=== PATIENT | female | born 1945 | race Caucasian/White ===

== ENCOUNTER 2018-10-06 16:30 | Emergency (ER) | payer MEDICARE, OTHER ==
[~2018-10-06] VITALS: Ht 162.6 cm; Wt 98.9 kg
[~2018-10-06 16:30] MED LIST: ALBU2.5V5 NEB; ASPI-630 PO; DOCU50CA9 PO; OLME5TAB4 PO; SERT25TA PO
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
[2018-10-06] MEDS ORDERED: cloNIDine HCL 0.1 MG TABLET PO ONE (17:00)
[2018-10-06 17:01] LABS: BASO # 0.1 x10^3/uL (0.0-0.2); BASO % 1 % (0-3); EOS # 0.1 x10^3/uL (0.0-0.7); EOS % 2 % (0-3); HEMATOCRIT 40.3 % (36.0-47.0); HEMOGLOBIN 13.8 g/dL (12.0-15.5); LYMPH # 1.7 x10^3/uL (1.0-4.8); LYMPH % 28 % (24-48); MEAN CORPUSCULAR HEMOGLOBIN 30 pg (25-35); MEAN CORPUSCULAR HGB CONC 34 g/dL (31-37); MEAN CORPUSCULAR VOLUME 88 fL (79-100); MONO # 0.5 x10^3/uL (0.0-1.1); MONO % 8 % (0-9); NEUT # 3.8 x10^3uL (1.8-7.7); NEUT % 61 % (31-73); PLATELET COUNT 175 x10^3/uL (140-400); RED BLOOD COUNT 4.58 x10^6/uL (3.50-5.40); RED CELL DISTRIBUTION WIDTH 12.9 % (11.5-14.5); WHITE BLOOD COUNT 6.3 x10^3/uL (4.0-11.0)
--- NOTE | 2018-10-06 17:21 | RAD ---
EXAM: Head CT without contrast. HISTORY: Hypertension. Dizziness. TECHNIQUE: Computed tomographic images of the head were obtained without contrast. *One or more of the following individualized dose reduction techniques were utilized for this examination: 1. Automated exposure control. 2. Adjustment of the mA and/or kV according to patient size. 3. Use of iterative reconstruction technique. COMPARISON: None. FINDINGS: There is no acute or subacute extra-axial or intraparenchymal hemorrhage. There is no mass effect or midline shift. There is no hydrocephalus. There are areas of decreased attenuation within the cerebral white matter, nonspecific and likely related to chronic small vessel disease. There is cerebral volume loss. The visualized portions of the orbits, paranasal sinuses and mastoid air cells are unremarkable. No suspicious calvarial lesion is seen. IMPRESSION: 1. No acute intracranial finding. Note is made that MRI is more sensitive for acute infarction. 2. Decreased attenuation scattered within the cerebral white matter, likely due to chronic small vessel disease. 3. Cerebral volume loss. Electronically signed by: Sania Elizabeth MD (10/06/2018 5:19 PM) [facility]
[2018-10-06 17:24] LABS: CALCIUM 9.8 mg/dL (8.5-10.1); CREATININE 1.4 mg/dL (0.6-1.0); GFR 36.7; POTASSIUM 3.8 mmol/L (3.5-5.1)
[2018-10-06 17:25] LABS: FREE T4 1.05 ng/dL (0.76-1.46); THYROID STIM HORMONE (TSH) 3.233 uIU/mL (0.358-3.74)
[2018-10-06 17:26] LABS: ALBUMIN 4.2 g/dL (3.4-5.0); ALBUMIN/GLOBULIN RATIO 1.6 (1.0-1.7); MAGNESIUM 1.9 mg/dL (1.8-2.4); TOTAL BILIRUBIN 2.2 mg/dL (0.2-1.0); TOTAL PROTEIN 6.9 g/dL (6.4-8.2)
[2018-10-06] MEDS ORDERED: hydrALAZINE 20 MG/ML VIAL. IVP ONE (18:00)
[2018-10-06 18:51] VITALS: BP 156/79
--- NOTE | 2018-10-07 06:53 | EKG ---
[facility] [address] [place] [address] Test Date: 2018-10-06 Test Time: 16:38:43 Pat Name: SANDRA THOMAS Department: Room: Gender: F Home Aide: : 1945 Requested By: YAMILET MERRITT Order Number: [id number] Reading MD: Measurements Intervals [place] Rate: 70 P: 41 CA: 144 QRS: 22 QRSD: 82 T: 41 QT: 388 QTc: 421 Interpretive Statements SINUS RHYTHM LEFT ATRIAL ABNORMALITY NON SPECIFIC T ABNORMALITY NON SPECIFIC ST DEPRESSION ABNORMAL ECG No previous ECG available for comparison
== END 2018-10-06 19:02 | disposition home or self-care (01) ==
LOC: ER 16:30
DX: I10 Essential (primary) hypertension (principal); R41.0 Disorientation, unspecified; J45.909 Unspecified asthma, uncomplicated; F32.9 Major depressive disorder, single episode, unspecified; Z88.5 Allergy status to narcotic agent
CPT/HCPCS: 36415; 70450; 80053; 83735; 84439; 84443; 84484; 85025; 93005; 96374; 96375; 99285; J0360; J2060

== ENCOUNTER 2021-04-27 20:48 | Emergency (ER) | payer MEDICARE, OTHER ==
[~2021-04-27] VITALS: Ht 162.6 cm; Wt 104.5 kg
--- NOTE | 2021-04-27 21:02 | PHYS DOC ---
Past Medical History Past Medical History: Asthma, Depression, Hypertension Past Surgical History: Appendectomy, Hysterectomy, Tonsillectomy Smoking Status: Never Smoker Alcohol Use: None Drug Use: None General Adult EDM: Chief Complaint: MECHANICAL FALL HPI: HPI: Patient is a 76 year old female brought in by EMS from home for evaluation of scalp laceration and head injury. She reportedly tripped and fell down a few stairs, hit the back of her head and sustained a laceration. No reported loss of consciousness. The patient has dementia, no acute reported alteration in mental status, no acute new confusion, per the patient's family. The patient denies headache or dizziness. She denies chest pain, dyspnea, palpitations, nausea or vomiting. She denies numbness tingling or feeling weak. She is not taking blood thinners reportedly. She tested positive for Covid just today, as well as multiple other family members with him she lives tested positive for COVID-19 infection. She was reportedly not vaccinated, per EMS and family's report. The patient was attended to quickly after the fall, and it was reportedly witnessed, no reported loss of consciousness. Review of Systems: Review of Systems: Review of systems is as per HPI, the patient's review of systems is somewhat limited by her chronic infusion and dementia. Heart Score: C/O Chest Pain: No Risk Factors: Risk Factors: DM, Current or recent (<one month) smoker, HTN, HLP, family history of CAD, obesity. Risk Scores: Score 0 - 3: 2.5% MACE over next 6 weeks - Discharge Home Score 4 - 6: 20.3% MACE over next 6 weeks - Admit for Clinical Observation Score 7 - 10: 72.7% MACE over next 6 weeks - Early Invasive Strategies Allergies: Allergies: Allergies Coded Allergies Type Severity Reaction Last Updated Verified morphine Adverse Reaction Intermediate Nausea and Vomiting 12/14/15 No Physical Exam: PE: Constitutional: Well developed, well nourished, no acute distress, non-toxic appearance. [] HENT: She has a small area of soft tissue swelling and hematoma of her mid posterior scalp, with subcutaneous laceration, no brisk or active bleeding. Mild soft tissue tenderness. No palpable step-offs. No other areas of trauma or injury noted on her scalp or face. Nares are patent without rhinorrhea or epistaxis. Oropharynx is patent and clear. No acute dental trauma noted. TMs are clear bilaterally, no hemotympanum otorrhea. Mucous membranes are moist. Eyes: PERRL, EOMI, conjunctiva normal, no discharge. [] Neck: Trachea is midline, no midline tenderness or step-offs, no paraspinal tenderness, full range of motion. Cardiovascular:Heart rate regular rhythm, well-perfused appearing Lungs & Thorax: Bilateral breath sounds clear to auscultation [] Abdomen: Abdomen is soft, nondistended, nontender to palpate Skin: Small scalp hematoma with overlying scalp laceration, as above. No active bleeding. Mild soft tissue tenderness. Back: No deformity, no tenderness, full range of motion Extremities: No limb deformity, pelvis is stable. No calf tenderness. Full painless range of motion of all 4 extremities. Neurologic: She is awake and alert, conversant, she is oriented to person, she is intermittently oriented to her place. She knows her date of . She does not know the date, day or time. She follows all commands. Cranial nerves II through XII are grossly intact. 5 out of 5 motor strength all 4 extremities. Sensation is grossly intact. Speech is clear and fluent Psychologic: She is only mildly and intermittently agitated, she is otherwise mo stly cooperative and pleasant, easily redirected. [] EKG: EKG: EKG is interpreted at 1933 Rhythm is sinus Rate is 85 bpm No STEMI Radiology/Procedures: Radiology/Procedures: IMAGING REPORT Signed PATIENT: SANDRA THOMAS ACCOUNT: [id number] : 1945 LOCATION: ER AGE: 76 SEX: F EXAM STATUS: REG ER ORD. PHYSICIAN: ELLA BALDERAS DO REASON: fall, scap laceration BACK OF HEAD PROCEDURE: CT HEAD AND CERVICAL SPINE WO INDICATION: Reason: fall, scap laceration BACK OF HEAD / Spl. Instructions: / History: . COMPARISON: October 06, 2018 TECHNIQUE: Axial CT images obtained through the head and cervical spine. One or more of the following individualized dose reduction techniques were utilized for this examination: 1. Automated exposure control; 2. Adjustment of the mA and/or kV according to patient size; 3. Use of iterative reconstruction technique. FINDINGS: Head: No midline shift. Suprasellar cistern is not effaced. Prominence of the ventricles and sulci which can be seen with age-related volume loss. Multifocal regions of low density throughout white matter. No definite acute intracranial hemorrhage. Scalp cephalohematoma. Cervical spine: Degenerative changes throughout the cervical spine with disc protrusions and osteophyte formation as well as facet and uncovertebral hypertrophy with multilevel central canal and neural foraminal stenosis. Grade 1 anterolisthesis of C4 on 5. Mild loss of height of the T1 and T3 vertebral body. IMPRESSION: * No acute intracranial hemorrhage. * Low-density within the white matter. Nonspecific but can be seen with small vessel ischemic disease. * Degenerative changes of cervical spine without a definite acute fracture. Mild compression deformities of T1 and T3 of unknown age. Electronically signed by: Travis Simpson MD (04/27/2021 11:12 PM) DESKTOP- [id number] DICTATED and SIGNED BY: TRAVIS SIMPSON MD DATE: 04/27/21 [id number] 0 Course & Med Decision Making: Course & Med Decision Making Pertinent Labs and Imaging studies reviewed. (See chart for details) The patient CT head is unremarkable. She tolerated laceration repair well. Wound care instructions were provided to the patient as well as to her son, who took her home. There is no indication for further imaging, invasive exams or admission at this time. She is not manifesting any evidence of acute alteration in mental status, she is chronically pleasantly confused with her dementia. Return precautions are given. The patient's family is comfortable with this. Dragon Disclaimer: Dragon Disclaimer: This electronic medical record was generated, in whole or in part, using a voice recognition dictation system. Laceration Repair Lac Repair Indication: Posterior scalp laceration Procedure: The patient was placed in the appropriate position, lying in the left lateral recumbent position on the ED gurney. 1% lidocaine with epinephrine was utilized for local anesthesia. The area was then cleaned with Betadine and irrigated with sterile normal saline. The laceration was closed utilizing a total of 3 sandhya. Wound eversion, hemostasis and wound closure was achieved. Total repaired wound length: 2.5 cm The patient tolerated the procedure well. Complications: none Departure Departure Impression: Primary Impression: Scalp laceration Additional Impressions: Head injury Fall at home Dementia Disposition: 01 HOME / SELF CARE / HOMELESS Condition: STABLE Referrals: UNKNOWN PCP NAME (PCP) Patient Instructions: Head Injury, Adult, Laceration Care, Adult Additional Instructions: Please return for new injury or trauma, uncontrolled bleeding, fever 100.4 or higher, yellow or green drainage from your wound or for any other concerns. Keep your wound clean and dry, you may use plain soap and water. Avoid prolonged submersion, try to keep your wound dry. Return to the ER in 7 to 10 days for staple removal. Please avoid using sharp rosen or brushes to avoid accidentally pulling at one of the sandhya. ELLA BALDERAS DO Apr 27, 2021 21:02
[2021-04-27 21:36] LABS: BASO % 1 % (0-3); EOS % 0 % (0-3); HEMATOCRIT 35.7 % (36.0-47.0); HEMOGLOBIN 12.1 g/dL (12.0-15.5); LYMPH # 0.6 x10^3/uL (1.0-4.8); LYMPH % 14 % (24-48); MEAN CORPUSCULAR HEMOGLOBIN 31 pg (25-35); MEAN CORPUSCULAR HGB CONC 34 g/dL (31-37); MEAN CORPUSCULAR VOLUME 90 fL (79-100); MONO # 0.6 x10^3/uL (0.0-1.1); MONO % 14 % (0-9); NEUT # 2.9 x10^3/uL (1.8-7.7); NEUT % 72 % (31-73); PLATELET COUNT 110 x10^3/uL (140-400); RED BLOOD COUNT 3.97 x10^6/uL (3.50-5.40); RED CELL DISTRIBUTION WIDTH 12.9 % (11.5-14.5); WHITE BLOOD COUNT 4.1 x10^3/uL (4.0-11.0)
[2021-04-27 21:45] LABS: BILIRUBIN,URINE NEGATIVE (NEG); CLARITY,URINE CLEAR; COLOR,URINE YELLOW; NITRITE,URINE POSITIVE (NEG); PROTEIN,URINE NEGATIVE (NEG-TRACE); UROBILINOGEN,URINE 0.2 mg/dL (0.2 mg/dL)
[2021-04-27 21:47] LABS: CALCIUM 8.9 mg/dL (8.5-10.1); CREATININE 1.4 mg/dL (0.6-1.0); GFR 36.4; POTASSIUM 3.9 mmol/L (3.5-5.1)
[2021-04-27 21:52] LABS: MAGNESIUM 1.8 mg/dL (1.8-2.4); PHOSPHORUS 3.5 mg/dL (2.6-4.7)
[2021-04-27 21:54] LABS: BACTERIA,URINE MANY /HPF (0-FEW); RBC,URINE RARE /HPF (0-2); WBC,URINE RARE /HPF (0-4)
--- NOTE | 2021-04-27 23:14 | RAD ---
INDICATION: Reason: fall, scap laceration BACK OF HEAD / Spl. Instructions: / History: . COMPARISON: October 06, 2018 TECHNIQUE: Axial CT images obtained through the head and cervical spine. One or more of the following individualized dose reduction techniques were utilized for this examinat ion: 1. Automated exposure control; 2. Adjustment of the mA and/or kV according to patient size; 3 . Use of iterative reconstruction technique. FINDINGS: Head: No midline shift. Suprasellar cistern is not effaced. Prominence of the ventricles and sulci which can be seen with age-related volume loss. Multifocal regions of low density throughout white matter. No definite acute intracranial hemorrhage. Scalp cephalohematoma. Cervical spine: Degenerative changes throughout the cervical spine with disc protrusions and osteophyte formation as well as facet and uncovertebral hypertrophy with multilevel central canal and neural foraminal stenos is. Grade 1 anterolisthesis of C4 on 5. Mild loss of height of the T1 and T3 vertebral body. IMPRESSION: * No acute intracranial hemorrhage. * Low-density within the white matter. Nonspecific but can be seen with small vessel ischemic diseas e. * Degenerative changes of cervical spine without a definite acute fracture. Mild compression deformi ties of T1 and T3 of unknown age. Electronically signed by: Travis Aiken MD (04/27/2021 11:12 PM) [id number]
[2021-04-28] MEDS ORDERED: LIDOCAINE 1%/EPI 1:100,000 20 ML VIAL. INJ ONE (00:15)
[2021-04-28 00:44] VITALS: BP 127/62
--- NOTE | 2021-04-28 04:30 | EKG ---
[facility] [address] [place] [address] Test Date: 2021-04-27 Test Time: 21:29:29 Pat Name: SANDRA THOMAS Department: Room: Gender: F [employer] General Sales Manager: : 1945 Requested By: ELLA BALDERAS Order Number: [id number] Reading MD: Tyson Cerna MD Measurements Intervals [place] Rate: 85 P: -41 MT: 124 QRS: 30 QRSD: 82 T: -81 QT: 342 QTc: 412 Interpretive Statements PROBABLE SR SHORT MT INTERVAL NON-SPECIFIC ST/T CHANGES Electronically Signed On 04-30-2021 13:12:19 NEWSPAPER ILLUSTRATOR by Tyson Cerna MD
== END 2021-04-28 01:25 | disposition home or self-care (01) ==
LOC: ER 20:48
DX: S01.01XA Laceration without foreign body of scalp, initial encounter (principal); F03.90 Unspecified dementia, unspecified severity, without behavioral disturbance, psychotic disturbance, mood disturbance, and anxiety; I10 Essential (primary) hypertension; J45.909 Unspecified asthma, uncomplicated; W01.0XXA Fall on same level from slipping, tripping and stumbling without subsequent striking against object, initial encounter; Y93.89 Activity, other specified; Y92.89 Other specified places as the place of occurrence of the external cause; Y99.8 Other external cause status
CPT/HCPCS: 12001; 36415; 70450; 72125; 80048; 81001; 82550; 83735; 84100; 85025; 87086; 93005; 99285; J3490; 87077; 87186